=== PATIENT | female | born 1960 | race Caucasian/White ===

== ENCOUNTER 2024-05-20 09:38 | Emergency (ER) | payer BC, SELFPAY ==
[2024-05-20] VITALS (9 sets, daily range): BP systolic 132–167; BP diastolic 78–92; PULSE 65–67; BMI 27.8
--- NOTE | 2024-05-20 10:38 | ED.GENMED ---
History of Present Illness
General
Chief Complaint: Dizziness
Source: patient
Exam Limitations: none
Time Seen by Provider: 05/20/24 10:02
Nursing documentation reviewed up to this point in time: agreed with
History of Present Illness
History of Present Illness:
63-year-old female with a history of previous vertigo symptoms several years ago treated with vestibular therapy after a complex workup which included an MRI which suggested the possibility of infection, LP was clean, ultimately she was treated with
Ativan and verapamil, is a mixed picture of migraine complex as well as vertigo
Presents with an onset of dizziness this morning. Around 3 AM she woke up to go the bathroom and felt a little bit off balance but not room spinning dizziness. She was able to make it to and from the bathroom back to bed. Patient then woke up at
730 this morning trying to get out of bed to go to the bathroom again and was severely dizzy and could not walk. Patient says when she tried to get up she became very diaphoretic and very lightheaded. She also was nauseous. She thought maybe her
blood pressure drops that she laid on the ground with her legs up. The room is spinning all this time. She felt a little bit better laying in standing. Her symptoms seem to be much worse with changing position. She can turn her head [id number]
without severe episodes of dizziness. She never had a headache, has no neck pain, has no numbness tingling or weakness in her face or arms or legs. Patient says that this feels different than her previous vertigo episodes and is worried about a
stroke. She takes her verapamil at nig and also was unsure if maybe she is dropping her blood pressure. Probably incidentally but 2 weeks ago while in [place] she fell and hit her head and face on the ground and had a hematoma. She had no loss of
consciousness and she is not on any blood thinners. She has not had any persistent headaches since then.
Past History
Past History
ED Past Medical History: Other (Vertigo, migraine)
ED Past Surgical History: None
Social History
Tobacco: Non-smoker
Alcohol: Other (unclear)
Personal:
Living: with family
Employment: Employed
Family History
Family History: Other (reviewed and noncontributory)
Review of Systems
Review of Systems
Allergies reviewed?: Yes
All Other Systems: Not applicable
Phy Exam
Physical Exam
Physical Exam:
GENERAL: Alert , in no apparent distress
HEAD: NCAT
EYE: pupils equal and reactive, no nystagmus visible in with with gaze straight forward, she does have slight nystagmus lateral gaze but was not dizzy, her left pupil looks subtly larger than her right
With a Eder-Hallpike I appreciated a very subtle possibly upbeat vertical nystagmus on the left, it was unilateral with her head turned to the left she was not overly symptomatic, she tolerated the Eder-Hallpike very well
NECK: Supple,full rom, nontender
ENT: o/p clr, mmm.
CARDIAC: Regular rate and rhythm . no edema
LUNGS: Clear breath sounds bilaterally, no acute respiratory distress, no wheezes/rales/rhonchi
ABDOMEN: Soft, without focal tenderness, no r/g, no cvat
NEUROLOGICAL: Alert and orientedx 4, cn intact, no facial asymmetry, 5/5 strength in UE/LE, sensation intact, romberg neg, ambulates without assistance, neg pronator d yesterday*
SKIN: Warm and dry, skin intact.
MUSCULOSKELETAL: No edema, well perfused.
PSYCH: Normal and appropriate interaction.
Course
Orders/Labs/Results
Orders:
Orders
05/20/24 10:32
CT Head W/o Iv Contrast Urgent
Comment:
Reason For Exam: fall 2 weeks ago, now severe vertigo with standing
Cardiac Monitoring- Treatment ONCE
0.9% Sodium Chloride 1000 ml [Nss] 1,000 ml IV BOLUS
Diazepam [Valium] 5 mg PO NOW STA
Ondansetron Injectable [Zofran] 4 mg IV NOW STA
05/20/24 10:37
Electrocardiogram (*1) Stat
Reason for Study: Other
Other Reason for Exam: neuro symptoms
EKG- Treatment ONCE
05/20/24 10:39
Consult Neurology [NEUROLOGY CONSULT] Urgent
Consulting Provider: Maru Link
Was physician already notified: Yes
05/20/24 11:18
COVID-19 Antigen Urgent
Source: Nasal Swab
Complete Blood Count/With Diff Urgent
Comprehensive Metabolic Panel Urgent
05/20/24 12:18
Acetaminophen [Tylenol] 650 mg .ROUTE .STK-MED ONE
05/20/24 12:19
Acetaminophen [Tylenol] 650 mg PO NOW STA
05/20/24 12:37
[place] mra [MA [place] Wo] Urgent
Comment:
Reason For Exam: dizziness with standing
Recent pill cam endoscopy?: No
MRI Brain [MR Brain Without Contrast] Urgent
Comment:
Reason For Exam: headache, dizziness
Recent pill cam endoscopy?: No
Neck With Contrast MRA [MA Neck With Contrast] Urgent
Comment:
Reason For Exam: dizziness, ataxia
Recent pill cam endoscopy?: No
Aspirin 325 mg PO NOW STA
05/20/24 17:54
Acetaminophen [Tylenol] 650 mg PO NOW STA
Diphenhydramine [Benadryl] 25 mg IV NOW STA
Metoclopramide [Reglan] 10 mg IV NOW STA
Abnormal Lab Results
05/20/24
11:18
MPV 10.9 H fL
(7.4-10.4)
Lymphocytes % 18.6 L %
(20.5-51.1)
BUN 24 H mg/dl
(7-17)
05/20/24 11:18
05/20/24 11:18
Vital Signs
Initial and Last Documented VS:
Initial Vital Signs
Temp Pulse Resp BP Pulse Ox
97.6 F 60 16 139/83 99
05/20/24 09:41 05/20/24 09:41 05/20/24 09:41 05/20/24 09:41 05/20/24 09:41
Last Documented Vital Signs
Temp Pulse Resp BP Pulse Ox
97.6 F 72 22 132/89 100
05/20/24 09:41 05/20/24 18:55 05/20/24 18:55 05/20/24 18:55 05/20/24 18:45
MDM/Problems Addressed
Differential Diagnosis Includes:
posterior stroke,, vertigo, migraine
MDM/Problems Addressed:
63 y/o F who had h/o vertigo symptoms and a headache in 2019; had mri that showed something suspicious for infectious process but LP was neg; ultimtaely she ended up with vestibular therapy and on verapamil for migraine/bp
pt has no jam episode since
this am woke up 3 am and had dizziness but still could make it to the bathroom
730 the room was spinning, ataxic, diaphoretic, lightheaded, nauseated
symptoms are way worse with standing and not really from turning head side to side
bp a little high 150/90; mildly orthostatic drops to 135
but very dizzy standing, ataxic
eder hallpike was really not positive, though i thought i subtly saw some unilateral nystagmus in the L eye with head turned to the L
but not on the right; it was very subtle
d/w neurologist
ct head neg
valium given PO
developed headache, tylenol
seen by neuro who recommended MRI/MRA
returned from MRI with headache; medicated with reglan, benadryl, tylenol
MRI/MRA results reviewed with neurology attending dr. maru link
recommends baby aspirin daily as she is higher risk for stroke with her complex migraine history
d/c home with valium
f/u with neuro outpatient
pt reassessed, headache resolved; hungry, dizziness improved; pt feels well to go home
ambulates to bathroom without assistance
understands plan
*Critical Care Note
Total Time (30-74mins, 75-104mins- exclusive of procedures): Not Applicable
ED Attending Note
-
Portions of this chart may have been created with voice recognition software.� Occasional wrong word or��sound alike� substitutions may have occurred due to the inherent limitations of voice recognition software.
Discharge Plan
Departure
Patient Disposition: Home (Routine Discharge)
Date of Disposition: 05/20/24
Time of Disposition: 18:55
Patient with high blood pressure during this ER visit?: No
Covid-19: Negative COVID-19
Discharge Problem:
Dizziness, Ataxia, Migraine, Vertigo
Instructions: Vertigo (a Type of Dizziness) (DC), Migraine in adults
Prescriptions:
New
diazepam [Valium] 5 mg tablet
5 mg PO BID PRN (Reason: VERTIGO) Qty: 12 0RF
No Action
acetaminophen 325 MG tablet
650 mg PO Q4HPRN PRN (Reason: mild pain/HOWELL/temp> 100.4F) Qty: 20 0RF
atorvastatin 20 MG tablet
20 mg PO QPM Qty: 30 0RF
chlorthalidone 25 MG tablet
25 mg PO DAILY Qty: 30 0RF
lorazepam 0.5 MG tablet
0.25 mg PO Q4HPRN PRN (Reason: dizziness) Qty: 10 0RF
prednisone 10 MG tablet
10 mg PO .TAPER Qty: 42 0RF
Rx Instructions:
60mg daily x2days, 50mg daily x2days, 40mg daily x2days, 30mg daily x2days, 20mg daily x2days, 10mg x2days
Referrals:
Maru Link MD [Active] - Follow up in 5-7 days (neurolgoy)
Seavy,Cisco Naresh, DO [Family Provider] -
Activity Restrictions/Additional Instructions:
YOUR MRI'S SHOWED NO SIGNS OF STROKE
YOU DO HAVE SOME CHRONIC HYPERINTENSE SIGNALS IN YOUR WHITE MATTER SUGGESTIVE OF CHRONIC MICROANGIOPATHIC ISCHEMIA. (THIS IS CHANGES IN THE VERY SMALL VESSELS IN YOUR BRAIN - YOU HAD THAT BEFORE ON PREVIOUS IMAGING)
THE NEUROLOGIST SUGGESTS A BABAY ASPIRIN DAILY 81 MG
FOLLOW UP IN
YOU MAY NEED VESTIBULAR THERPAY AGAIN
TRY VALIUM 5 MG EVERY 8 HOURS NEEDED FOR VERTIGO SYMPTOMS
FOR HEADACHE, TRY TYLENOL OR MOTRIN
RETURN FOR ANY CONCERNS: SEVERE HEADACHE, TROUBLE WALKING, VOMITING, CONFUSION, WEAKNESS, ETC
Interventions
Interventions:
*Risk Screen - Suicide Last Done: 05/20/24 09:41
*General Assessment Last Done: 05/20/24 09:41
*Neglect/Abuse Screening Last Done: 05/20/24 09:41
ED- Fall Risk Assessment Last Done: 05/20/24 18:45
*ED COVID-19 Vaccine History Last Done: 05/20/24 09:41
*Nursing Disposition Last Done: 05/20/24 19:04
ED- Neurological Assessment Last Done: 05/20/24 12:12
ED Swallowing Screen Last Done: 05/20/24 11:15
Discharge Date and Time
Print Language: CITIZEN OF [place]
[2024-05-20] MEDS: NSS 1000 IV (11:22)
[2024-05-20] MEDS: VALIUM 5 MG PO (11:22)
[2024-05-20] MEDS: ZOFRAN 4 MG IV (11:22)
[2024-05-20 11:28] LABS: % Basophils 0.5 % (0-2); % Eosinophils 0.5 % (0-6); % Immature Granulocytes 0.1 % (0-0.5); % Lymphocytes 18.6 % (20.5-51.1); % Monocytes 6.6 % (1.7-9.3); % Neutrophils 73.7 % (42.2-75.2); Absolute Lymphocytes 1.5 10^3/uL (1.2-3.4); Absolute Monocytes 0.5 10^3/uL (0.1-0.6); Hematocrit 44.3 % (37.0-47.0); Hemoglobin 15.1 g/dL (12.0-16.0); Mean Corp Hgb Conc. 34.1 g/dL (33.0-37.0); Mean Corpuscular Hgb 28.8 pg (27.0-31.0); Mean Corpuscular Volume 84.4 fL (81.0-99.0); Mean Platelet Volume 10.9 fL (7.4-10.4); Nucleated Red Blood Cells % 0 %; Platelet Count 293 10^3/uL (130-400); Red Blood Cell Count 5.25 10^6/uL (4.20-5.40); Red Cell Dist. Width 13.2 % (11.5-14.5); White Blood Cell Count 8.1 10^3/uL (4.8-10.8)
[2024-05-20 11:42] LABS: COVID-19 Antigen Negative (Negative)
[2024-05-20 11:49] LABS: ALT (SGPT) 22 U/L (0-35); AST (SGOT) 28 U/L (14-36); Albumin 4.6 g/dl (3.5-5.0); Alkaline Phosphatase 50 U/L (38-126); Blood Urea Nitrogen 24 mg/dl (7-17); Calcium 9.8 mg/dl (8.4-10.2); Carbon Dioxide 29 mmol/L (22-30); Chloride 103 mmol/L (98-107); Estimated Creatinine Clearance 74 ml/min; Glucose 99 mg/dl (70-99); Potassium 4.1 mmol/L (3.5-5.1); Sodium 140 mmol/L (135-145); Total Bilirubin 0.7 mg/dl (0.2-1.3); Total Protein 7.3 g/dl (6.3-8.2); eGFR > 60.00
[2024-05-20] MEDS: TYLENOL 650 MG PO ×2 (12:19→18:01)
[2024-05-20] MEDS: ASPIRIN 325 MG PO (13:01)
[2024-05-20] MEDS: REGLAN 10 MG IV (18:01)
[2024-05-20] MEDS: BENADRYL 25 MG IV (18:02)
== END 2024-05-20 19:58 | disposition home or self-care (01) ==
LOC: EMR 09:38
PROVIDERS: Physician Assistant; CONSULT PHYSICIAN Psychiatry & Neurology Neurology; EMERGENCY PHYSICIAN Emergency Medicine; FAMILY PHYSICIAN Internal Medicine
DX: G43.109 Migraine with aura, not intractable, without status migrainosus (principal); R42 Dizziness and giddiness; R27.0 Ataxia, unspecified; H55.00 Unspecified nystagmus; R11.0 Nausea; Z11.52 Encounter for screening for COVID-19; K21.9 Gastro-esophageal reflux disease without esophagitis; Z87.01 Personal history of pneumonia (recurrent); Z88.8 Allergy status to other drugs, medicaments and biological substances; Z91.030 Bee allergy status
CPT/HCPCS: 99285; 96361; 96374; 96375 ×2; 70450; 70544; 70548; 70551; 80053; 85025; 87811; 93005; A9585

== ENCOUNTER 2025-10-25 00:49 | Emergency (ER) | payer BC, SELFPAY ==
[2025-10-25 01:09] VITALS: BP 148/99
[2025-10-25 01:46] LABS: Hematocrit 49.3 % (37.0-47.0); Hemoglobin 16.5 g/dL (12.0-16.0); Mean Corp Hgb Conc. 33.5 g/dL (33.0-37.0); Mean Corpuscular Volume 84.9 fL (81.0-99.0); Nucleated Red Blood Cells % 0 %; Platelet Count 370 10^3/uL (130-400); Red Cell Dist. Width 13.2 % (11.5-14.5)
[2025-10-25 02:03] LABS: ALT (SGPT) 27 U/L (0-35); AST (SGOT) 25 U/L (14-36); Albumin 5.1 g/dl (3.5-5.0); Alkaline Phosphatase 58 U/L (38-126); Blood Urea Nitrogen 32 mg/dl (7-17); Calcium 10.7 mg/dl (8.4-10.2); Carbon Dioxide 25 mmol/L (22-30); Chloride 100 mmol/L (98-107); Glucose 115 mg/dl (70-99); Lipase 71 U/L (23-300); Potassium 4.3 mmol/L (3.5-5.1); Sodium 136 mmol/L (135-145); Total Protein 8.4 g/dl (6.3-8.2); eGFR 55.07
[2025-10-25] MEDS: ZOFRAN ODT (ORALLY DISINTEGRATING) 4 MG PO (03:56)
[2025-10-25 03:58] VITALS: BP 131/100
[2025-10-25] MEDS: NSS 1000 IV ×2 (04:51→05:53)
[2025-10-25] MEDS: IMODIUM 4 MG PO (04:52)
--- NOTE | 2025-10-25 06:14 | ED.GENMED ---
History of Present Illness
General
Chief Complaint: Abdominal Symptoms
Source: patient and spouse
Time Seen by Provider: 10/25/25 04:24
History of Present Illness
History of Present Illness:
Note:
CHIEF COMPLAINT(S)
Vomiting and diarrhea for five days.
HISTORY OF PRESENT ILLNESS
The patient is a 65-year-old female presenting with complaints of vomiting and diarrhea persisting for five days. She reports vomiting three times, describing it as 'a bucket full,' and experiencing diarrhea so severe that she feels the need to
'stand up and just pour out.' The patient denies recent travel, antibiotic use, or contact with sick individuals. She recalls consuming lobster at an office [employer], which she suspects may have led to food poisoning. The patient has a history of a
similar episode following a trip to [facility], which resolved after four days. She is concerned about a possible bacterial infection. A stool sample was collected for culture to identify any bacterial pathogens. The patient reports feeling
dehydrated and dizzy, symptoms attributed to her fluid losses. She attempted self-treatment with an old medication, Levsin (also known as hyoscyamine), which provided some relief.
PHYSICAL EXAM
General: Alert, no acute distress.
Cardiovascular: Heart sounds regular, normal rate and rhythm upon auscultation, no murmurs heard.
Gastrointestinal: Abdomen non-tender upon palpation, bowel sounds present. No distention
Neurological: Reports feeling dizzy, likely secondary to dehydration.
Skin normal
Lower extremities: No edema, normal perfusion
PLAN
- Administer intravenous fluids to address dehydration.
- Initiate stool culture to identify any infectious agents.
- Provide a dose of loperamide (commercially known as Imodium) to manage diarrhea.
- Monitor the patient�s fluid status and adjust intravenous fluids as needed.
- Await stool culture results to determine if further treatment is necessary.
DIFFERENTIAL DIAGNOSIS
The Differential Diagnosis includes, in no particular order and is not limited to:
1. Viral gastroenteritis
2. Bacterial gastroenteritis (e.g., Salmonella, Campylobacter, Shigella)
3. Food poisoning (due to seafood or another source)
4. Travelers diarrhea
5. Irritable bowel syndrome (IBS) with diarrhea
6. Clostridium difficile infection
7. Parasitic infection (e.g., giardiasis)
8. Adverse drug reaction
9. Acute pancreatitis
10. Inflammatory bowel disease (e.g., Crohns disease, ulcerative colitis)
Disposition:
SUMMARY OF ENCOUNTER
The patient, a 65-year-old female, presented to the emergency department with persistent diarrhea. Upon evaluation, her dehydration status was confirmed by the comprehensive metabolic panel (CMP), which showed elevated blood urea nitrogen (BUN) and
creatinine levels of 32 and 1.1, respectively. Intravenous fluids were administered to manage dehydration. A complete blood count (CBC) was normal. Stool sampling was conducted, and the culture is pending. She did not experience vomiting during her
stay in the emergency department. Loperamide (Imodium) was administered to manage diarrhea. The patient appeared well during reassessment and is deemed safe for discharge with instructions for outpatient follow-up.
DISPOSITION
Discharge.
ASSESSMENT
Acute gastroenteritis with dehydration secondary to fluid loss due to vomiting and diarrhea.
EMERGENCY TREATMENTS ADMINISTERED
Intravenous fluids, loperamide (Imodium).
PLAN
Discharge the patient with instructions to maintain proper hydration and monitor for symptoms. Follow-up with primary care or return to the emergency department if symptoms worsen or do not improve.
INDEPENDENT REVIEW OF LABS AND INTERPRETATION OF TESTS
My independent review of CMP indicates dehydration, evidenced by elevated BUN and creatinine levels of 32 and 1.1. My independent review of the CBC is normal.
FOLLOW-UP INSTRUCTIONS
Follow-up with the primary care provider or return to the emergency department if symptoms persist or worsen.
MEDICATION RECONCILIATION
Administered loperamide (Imodium) in the emergency department.
MEDICAL DECISION MAKING
- Number and Complexity of Problems Addressed: Chronic conditions affecting care include the differential diagnosis: Viral gastroenteritis, bacterial gastroenteritis, food poisoning, travelers diarrhea, irritable bowel syndrome with diarrhea,
Clostridium difficile infection, parasitic infection, adverse drug reaction, acute pancreatitis, inflammatory bowel disease.
- Data:
- Category 1: Reviewed CBC and CMP to assess dehydration status.
- Category 2: No independent historian involved.
- Risk: Prescription medication, loperamide (Imodium), was administered. Consideration of Admission/Observation: Escalation of care including admission/observation was considered given the complexity and risk of the patients presenting complaint,
exam findings, and her underlying comorbidities. However, ultimately I feel the patient is safe for outpatient management with close follow-up. Reasoning: The work-up is reassuring and does not reveal any acute life/organ-threatening processes; the
patients symptoms were well controlled upon reevaluation; the reassessment was reassuring, vitals are stable, and the patient agrees with discharge and is reliable for follow-up.
DIAGNOSIS
Diarrhea.
Dehydration (ICD-10 Code: E86.0).
Past History
Past History
ED Past Medical History: Other (Vertigo, migraine)
ED Past Surgical History: None
Social History
Tobacco: Non-smoker
Alcohol: Other (unclear)
Personal:
Living: with family
Employment: Employed
Family History
Family History: Other (reviewed and noncontributory)
Phy Exam
Physical Exam
Physical Exam:
.
Course
Orders/Labs/Results
Orders:
Orders
10/25/25 01:15
Electrocardiogram (*1) Urgent
Reason for Study: Abdominal Pain
EKG- Treatment ONCE
IV Insert/Care/Rem.- Treatment PRN
Straight cath- Treatment ONCE
Urinalysis Reflex To Culture Urgent
Date Specimen was Collected: 10/25/25
Time Specimen was Collected: 01:15
10/25/25 01:27
Complete Blood Count/With Diff Urgent
Comprehensive Metabolic Panel Urgent
Lipase Urgent
Stool Culture Urgent
RUSTY Source: Feces/Stool
Specimen Description:
Date Specimen was Collected: 12/30/25
Time Specimen was Collected: 01:16
10/25/25 03:51
Ondansetron Orally Disint [Zofran Odt (Orally Disintegrating)] 4 mg .ROUTE .STK-MED ONE
10/25/25 03:56
Ondansetron Orally Disint [Zofran Odt (Orally Disintegrating)] 4 mg PO NOW STA
10/25/25 04:32
0.9% Sodium Chloride 1000 ml [Nss] 1,000 ml IV BOLUS
10/25/25 04:36
Loperamide [Imodium] 4 mg PO NOW STA
10/25/25 05:52
0.9% Sodium Chloride 1000 ml [Nss] 1,000 ml IV BOLUS
Abnormal Lab Results
10/25/25
01:27
RBC 5.81 H 10^6/uL
(4.20-5.40)
Hgb 16.5 H g/dL
(12.0-16.0)
Hct 49.3 H %
(37.0-47.0)
MPV 11.0 H fL
(7.4-10.4)
Absolute Neuts (auto) 7.0 H 10^3/uL
(1.4-6.5)
Absolute Monos (auto) 1.0 H 10^3/uL
(0.1-0.6)
BUN 32 H mg/dl
(7-17)
Creatinine 1.1 H mg/dL
(0.6-1.0)
Glucose 115 H mg/dl
(70-99)
Calcium 10.7 H mg/dl
(8.4-10.2)
Total Protein 8.4 H g/dl
(6.3-8.2)
Albumin 5.1 H g/dl
(3.5-5.0)
10/25/25 01:27
10/25/25 01:27
Vital Signs
Initial and Last Documented VS:
Initial Vital Signs
Temp Pulse Resp BP Pulse Ox
98.7 F 113 20 148/99 98
10/25/25 01:09 10/25/25 01:09 10/25/25 01:09 10/25/25 01:09 10/25/25 01:09
Last Documented Vital Signs
Temp Pulse Resp BP Pulse Ox
98.1 F 96 20 131/100 98
10/25/25 03:58 10/25/25 03:58 10/25/25 03:58 10/25/25 03:58 10/25/25 06:16
*Pulse Oximetry
SaO2: 98
Oxygen Mode of Delivery: Room air
Patient hypoxic: no
*Critical Care Note
Total Time (30-74mins, 75-104mins- exclusive of procedures): Not Applicable
ED Attending Note
-
Portions of this chart may have been created with voice recognition software.� Occasional wrong word or��sound alike� substitutions may have occurred due to the inherent limitations of voice recognition software.
Discharge Plan
Departure
Patient Disposition: Home (Routine Discharge)
Date of Disposition: 10/25/25
Time of Disposition: 06:23
Patient with high blood pressure during this ER visit?: Yes
Discharge Problem:
Acute diarrhea
Instructions: Dehydration, Adult (DC), Diarrhea in teens and adults, BLOOD PRESSURE
Prescriptions:
No Action
acetaminophen 325 MG tablet
650 mg PO Q4HPRN PRN (Reason: mild pain/HOWELL/temp> 100.4F) Qty: 20 0RF
atorvastatin 20 MG tablet
20 mg PO QPM Qty: 30 0RF
chlorthalidone 25 MG tablet
25 mg PO DAILY Qty: 30 0RF
lorazepam 0.5 MG tablet
0.25 mg PO Q4HPRN PRN (Reason: dizziness) Qty: 10 0RF
prednisone 10 MG tablet
10 mg PO .TAPER Qty: 42 0RF
Rx Instructions:
60mg daily x2days, 50mg daily x2days, 40mg daily x2days, 30mg daily x2days, 20mg daily x2days, 10mg x2days
diazepam [Valium] 5 mg tablet
5 mg PO BID PRN (Reason: VERTIGO) Qty: 12 0RF
Referrals:
Cisco Jarrell DO [Family Provider, Internal Medicine]
Activity Restrictions/Additional Instructions:
Please drink plenty of fluids. Your stool cultures are pending. If they are found to be abnormal, you will be called and advised on further treatment. You may use Imodium as needed. Please see your doctor in follow-up in the next 3 to 5 days
Interventions
Interventions:
*General Assessment Last Done: 10/25/25 01:09
*Neglect/Abuse Screening Last Done: 10/25/25 01:09
*ED COVID-19 Vaccine History Last Done: 10/25/25 01:09
*ED Influenza Vaccine History Last Done: 10/25/25 01:09
*Risk Screen - Suicide (C-SSRS) Last Done: 10/25/25 01:09
Discharge Date and Time
Print Language: [place]
== END 2025-10-25 07:17 | disposition home or self-care (01) ==
LOC: EMR 00:49
PROVIDERS: Emergency Medicine; EMERGENCY PHYSICIAN Emergency Medicine; FAMILY PHYSICIAN Internal Medicine
DX: K52.9 Noninfective gastroenteritis and colitis, unspecified (principal); E86.0 Dehydration; R11.10 Vomiting, unspecified
CPT/HCPCS: 96360; 96361; 99284; 80053; 83690; 85025; 87045; 87046; 87427; 93005